=== PATIENT | male | born 1980 | race Two or more races ===

== ENCOUNTER 2023-04-30 13:10 | Emergency (ER) | payer OTHER, SELFPAY ==
[2023-04-30 14:01] VITALS: BP 142/80; PULSE 87; RESP 18; TEMP 36.5; O2SAT 98; BMI 20.4
[2023-04-30] MEDS: Diphth,Pertus(ACell),Tet Adult 0.5 ML SYRINGE IM (14:10)
[2023-04-30] MEDS: Bacitracin Oint 0.9 GM PACKET 1 APPL TOPICAL (14:10)
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
--- NOTE | 2023-04-30 14:30 | PC.NURSE ---
wound cleaned and wrapped by provider, tdap given left deltoid, pt tolerated well, VIS given. ortho shoe applied to R foot.
== END 2023-04-30 14:38 | disposition home or self-care (01) ==
LOC: HO.ED 14:27
PROVIDERS: Emergency Provider Emergency Medicine
DX: T25.221A Burn of second degree of right foot, initial encounter (principal); X12.XXXA Contact with other hot fluids, initial encounter; Y93.G3 Activity, cooking and baking; Y92.9 Unspecified place or not applicable; Y99.9 Unspecified external cause status; Z23 Encounter for immunization
CPT/HCPCS: 16000; 90471; 90715; 99283; 99284

== ENCOUNTER 2023-05-03 12:30 | Emergency (ER) | payer OTHER, SELFPAY ==
[2023-05-03 12:34] VITALS: BP 138/73; PULSE 80; RESP 19; TEMP 36.6; O2SAT 98; BMI 19.4
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
[2023-05-03] MEDS: Bacitracin Oint 0.9 GM PACKET 1 APPL TOPICAL (12:43)
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
== END 2023-05-03 13:06 | disposition home or self-care (01) ==
LOC: HO.ED 12:42
PROVIDERS: Emergency Provider Emergency Medicine
DX: M79.671 Pain in right foot (principal); T25.021D Burn of unspecified degree of right foot, subsequent encounter; X08.8XXD Exposure to other specified smoke, fire and flames, subsequent encounter
CPT/HCPCS: 99282